=== PATIENT | female | born 1975 | race Caucasian/White ===

== ENCOUNTER → 2018-01-12 | Outpatient (CLI) | payer BC, MEDICAID ==
[~2018-01-12] MED LIST: NO HOME MEDICATIONS
== END ==
LOC: COL.RAD 11:19
DX: M48.02 Spinal stenosis, cervical region (principal); M40.12 Other secondary kyphosis, cervical region; M50.11 Cervical disc disorder with radiculopathy, high cervical region; J39.8 Other specified diseases of upper respiratory tract
CPT/HCPCS: Q9967

== ENCOUNTER → 2019-03-16 | Outpatient (CLI) | payer MEDICAID | LOC: COL.RAD 11:13 | DX: M48.02 Spinal stenosis, cervical region (principal); M54.12 Radiculopathy, cervical region; Z98.1 Arthrodesis status ==